=== PATIENT | female | born 1975 | race African-American/Black ===

== ENCOUNTER 2016-07-21 09:59 | Emergency (ER) | payer MEDICAID ==
[2016-07-21 09:59] VITALS: BMI 49.1
[2016-07-21 10:07] VITALS: TEMP 98.6
[2016-07-21] MEDS ORDERED: PROMETHAZINE 25 MG/ML VIAL IV ONE (10:15)
[2016-07-21] MEDS ORDERED: PANTOPRAZOLE 40 MG VIAL IV ONE (10:17)
[2016-07-21] MEDS ORDERED: HYDROmorphone 1 MG INJECTION IV ONE ×2 (10:17→11:41)
[2016-07-21] MEDS ORDERED: NS 1,000 ML IV ONE (10:28)
[2016-07-21] MEDS ORDERED: LABETALOL 20 MG/4 ML SYRINGE IV ONE (10:28)
--- NOTE | 2016-07-21 10:37 | EDPRACDOC ---
- General Information Chief Complaint: Nausea,Vomiting,Diarrhea Stated Complaint: ABD/BACK PAIN/N/V Time Seen by Provider: 07/21/16 10:13 Information Source: Patient Mode Of Arrival: Car Home Medications: Home Medications Insulin Detemir [Levemir] 60 units SQ QHS 12/25/13 Pantoprazole Sodium [Protonix] 40 mg PO DAILY 03/14/14 Duloxetine [Cymbalta] 60 mg PO HS 01/01/15 Metformin HCl [Glucophage] 500 mg PO BID 06/08/15 Sennosides [Senna Laxative] 25 mg PO BID 09/19/15 Albuterol Sulfate [Proair Hfa] 2 puff INH Q4H PRN 11/05/15 Lorazepam [Ativan] 1 mg PO BID PRN 11/05/15 Oxycodone HCl/Acetaminophen [Percocet 7.5-325 mg Tablet] 1 tab PO Q8H PRN Atorvastatin Calcium [Lipitor] 40 mg PO QHS 03/28/16 Apixaban [Eliquis] 5 mg PO BID #120 tablet 06/11/16 Lisinopril/Hydrochlorothiazide [Lisinopril-Hctz 10-12.5 mg Tab] 1 tab PO DAILY 07/05/16 Ciprofloxacin HCl [Cipro] 500 mg PO BID #14 tab 07/21/16 Hydrocodone/Acetaminophen [Lortab 5-325 mg Tablet] 1 each PO Q4H PRN #15 tablet 07/21/16 Metoclopramide HCl [Reglan] 10 mg PO Q6H #20 tablet 07/21/16 Phenazopyridine HCl [Pyridium] 200 mg PO TID #6 tablet 07/21/16 Allergies/Adverse Reactions: Allergies Allergy/AdvReac Type Severity Reaction Status Date / Time No Known Allergies Allergy Verified 07/21/16 10:06 - History of Present Illness Onset: DAYS HPI: PT SAID THAT SHE HAS HAD N/V WITH ABD PAIN FOR 2 DAYS. PT HAS BEEN HERE FREQUENTLY FOR SIMILAR COMPLAINTS. PT HAS BEEN UNABLE TO KEEP DOWN HER MEDS. Symptoms Occured: Reports: Spontaneous Duration: Reports: Intermittent Pain Severity: Moderate Pain Location: Reports: Epigastric History of: Reports: Abdominal Surgery Relevant History of: Reports: Abdominal Surgery Associated Signs & Symptoms: Reports: Nausea, Vomiting Oral Intake: Decreased Urinary Output: Decreased ED Past Medical History - Patient Medical History Neurological History: Cardiac History: Reports: Hypertension, Hypercholesterolemia Respiratory History: Reports: Pulmonary Embolism GI/ History: Reports: Gastroesophageal Reflux Musculoskeletal History: Reports: Osteoarthritis Psychological History: Reports: Anxiety. Denies: Depression, Substance Use Disorder Systemic History: Reports: Anemia, Diabetes (NIDDM). Denies: Cancer Additional Past Medical History: CHRONIC PAIN Surgical History: Reports: Cholecystectomy (2011), Hysterectomy (Dr. Larose, December 2013), Tonsillectomy/Adnoidectomy, Other (BTL, T&A) - Family Medical History Reports: Hypertension (Mother), Diabetes (Mother), Cancer, Stroke (Mother), Cardiac Disorders (Mother: SD/CHF at 40 yo. Father) - Social Medical History Smoking Status: Never smoker Social History: Denies: Substance Use Disorder ETOH: None Substance Abuse: None Lives In: Home EDM Review of Systems - Review of Systems ROS Negative Except as Marked: Yes All systems reviewed and were negative except as marked Gastrointestinal: Nausea, Pain, Vomiting - Physical Exam Constitutional: Alert (Awake), Distress Oriented to: Time, Person, Place Last recorded Vital Signs: Last Vital Signs Temp 98.6 F 07/21/16 10:06 Pulse 125 H 07/21/16 10:06 Resp 22 07/21/16 10:06 BP 190/105 H 07/21/16 10:06 Pulse Ox 95 07/21/16 10:06 Oxygen Pulse Oxygen Saturation 95 O2 Device Oxygen Flow Rate Fraction of Inspired Oxygen ( FIO2) - HEENT Head: Normal ( normocephalic) Eye Exam: Normal (PERRL, EOMI, Sclera white) Oropharynx: Membranes Dry ENT EAC: Normal TMJ: Normal Nose: No Symptoms Reported (septum midline) Neck: Normal (FROM, trachea at midline) - Respiratory/Cardiovascular Respiratory: Normal - CTA Cardiovascular: Tachycardia - GI Auscultation: Normal (NABS) Palpation: Normal (Soft,No rebound or guarding, non distended) Tenderness: Diffuse, Mild Bill's Sign: Negative - Musculoskeletal Back: Normal (Non-Tender) Extremities: Normal (Normal tone, Pulses 2+ No cyanosis or edema, FROM) - Integumentary Skin: Normal, Warm, Dry Lymphatics: Normal (no adenopathy) - Neurologic Memory Impaired: Normal Motor Function: Normal (Normal tone, Pulses 2+ No cyanosis or edema, FROM) Cranial Nerve: Normal (CN II-X11 intact sensation, strength 5/5) Cerebellar: Normal Mood Description: Normal Thought: Coherent Perception: Normal - Re-evaluation Re-evaluation 1 Re-evaluation Time: 12:44 (IMPROVED) - Results 07/21/16 10:23 07/21/16 10:23 - EKG EKG #1 EKG Time: 10:20 -: Yes EKG interpreted by me Rate: bpm: 122 [place]: Normal Rhythm: ST Block: None Hypertrophy: None ST: Normal Comparison: 07/05/16 - Diagnostic Imaging Chest Image interpreted by: Radiologist Stable chest. No acute cardiopulmonary process Decision Time to Discharge: 12:44 - Departure Yes I personally saw and evaluated the patient. Disposition: Home Condition: Fair Final Diagnosis: Nausea and vomiting, Dehydration, UTI (urinary tract infection), Poorly controlled type 2 diabetes mellitus Instructions: Urinary Tract Infection in Women (ED), Acute Nausea and Vomiting (ED) Education/Counseling Given To: Patient Education/Counseling Given Regarding: Diagnosis, Treatment, Follow Up Referrals: Rissa Salas NP [Primary Care Provider] - One Week Prescriptions: Ciprofloxacin HCl [Cipro] 500 mg PO BID #14 tab Hydrocodone/Acetaminophen [Lortab 5-325 mg Tablet] 1 each PO Q4H PRN #15 tablet PRN Reason: Pain Metoclopramide HCl [Reglan] 10 mg PO Q6H #20 tablet Phenazopyridine HCl [Pyridium] 200 mg PO TID #6 tablet Forms: Patient Discharge Instructions, ED Discharge Instructions Additional Instructions: DIABETIC DIET
[2016-07-21 10:47] LABS: BLOOD UREA NITROGEN 16 MG/DL (7-17); CALCIUM 9.5 MG/DL (8.4-10.2); CALCULATED OSMOLALITY 272 MOs/Kg (270-290); CHLORIDE 90 mEq/L (98-107); GLUCOSE 393 MG/DL (70-99); SODIUM LEVEL 132 mEq/L (137-146); TOTAL PROTEIN 8.3 G/DL (6.3-8.2)
[2016-07-21 10:50] LABS: PARTIAL THROMB. TIME 25.2 SEC (22-35)
--- NOTE | 2016-07-21 11:17 | DIRPT ---
CLINICAL DATA: Epigastric pain with nausea and vomiting for 2 days. EXAM: PORTABLE CHEST 1 VIEW COMPARISON: Radiographs 07/05/2016. CT 07/05/2016. FINDINGS: 1050 hours. The heart size and mediastinal contours are normal. The lungs are clear. There is no pleural effusion or pneumothorax. No acute osseous findings are identified. Old rib fractures are again noted bilaterally. IMPRESSION: Stable chest. No acute cardiopulmonary process. Electronically Signed By: Jonathon Wade M.D. On: 07/21/2016 11:14
[2016-07-21 11:34] LABS: SEG NEUTROPHIL 89 % (45-76)
[2016-07-21] MEDS ORDERED: METOCLOPRAMIDE 10 MG/2 ML VIAL IV ONE (11:51)
[2016-07-21] MEDS ORDERED: REGULAR INSULIN 100 UNITS/ML - 3 ML VIAL IV ONE (11:51)
[2016-07-21 12:22] LABS: CA OXALATE OCC; LEUKOCYTES/URINE NEG (NEGATIVE); NITRITE/URINE POS (NEGATIVE); URINE OCCULT BLOOD 1+ (NEG/TRACE); WBC/URINE TNTC (0-5)
[2016-07-21] MEDS ORDERED: CEFTRIAXONE 1 GM in D5W 100 ML IV ONE (12:44)
[2016-07-21] MEDS ORDERED: PHENAZOPYRIDINE 100 MG TAB PO ONE (12:46)
[2016-07-21 13:32] VITALS: BP 163/82; PULSE 109
== END 2016-07-21 13:25 | disposition home or self-care (01) ==
LOC: ED 09:59
DX: N39.0 Urinary tract infection, site not specified (principal); E11.65 Type 2 diabetes mellitus with hyperglycemia; E86.0 Dehydration
CPT/HCPCS: 36415; 71010; 80053; 81001; 82962; 84484; 85007; 85027; 85610; 85730; 87077; 87086; 87186; 93005; 96360; 96365; 96375; 96376; 99285; J0696; J1170; J2550; J2765; J3490; J7060; S0164

== ENCOUNTER 2016-08-03 02:49 | Emergency (ER) | payer MEDICAID ==
[2016-08-03 02:49] VITALS: BMI 49.1
[2016-08-03 02:59] VITALS: TEMP 98.3
[2016-08-03] MEDS ORDERED: METOCLOPRAMIDE 10 MG/2 ML VIAL IV ONE (03:01)
[2016-08-03] MEDS ORDERED: NS 1,000 ML IV ONE ×2 (03:01→05:02)
[2016-08-03] MEDS ORDERED: MORPHINE 4 MG/ML INJECTION IV ONE (03:01)
--- NOTE | 2016-08-03 03:18 | EDPRACDOC ---
- General Information Chief Complaint: Abdominal Pain Stated Complaint: ABD/BACK PAIN Time Seen by Provider: 08/03/16 02:56 Information Source: Patient Mode Of Arrival: Car Home Medications: Home Medications Insulin Detemir [Levemir] 60 units SQ QHS 12/25/13 Pantoprazole Sodium [Protonix] 40 mg PO DAILY 03/14/14 Duloxetine [Cymbalta] 60 mg PO HS 01/01/15 Metformin HCl [Glucophage] 500 mg PO BID 06/08/15 Sennosides [Senna Laxative] 25 mg PO BID 09/19/15 Albuterol Sulfate [Proair Hfa] 2 puff INH Q4H PRN 11/05/15 Lorazepam [Ativan] 1 mg PO BID PRN 11/05/15 Oxycodone HCl/Acetaminophen [Percocet 7.5-325 mg Tablet] 1 tab PO Q8H PRN Atorvastatin Calcium [Lipitor] 40 mg PO QHS 03/28/16 Apixaban [Eliquis] 5 mg PO BID #120 tablet 06/11/16 Lisinopril/Hydrochlorothiazide [Lisinopril-Hctz 10-12.5 mg Tab] 1 tab PO DAILY 07/05/16 Ciprofloxacin HCl [Cipro] 500 mg PO BID #14 tab 07/21/16 Hydrocodone/Acetaminophen [Lortab 5-325 mg Tablet] 1 each PO Q4H PRN #15 tablet 07/21/16 Metoclopramide HCl [Reglan] 10 mg PO Q6H #20 tablet 07/21/16 Phenazopyridine HCl [Pyridium] 200 mg PO TID #6 tablet 07/21/16 Metoclopramide HCl [Reglan] 5 mg PO Q8 PRN #30 tab 08/03/16 Ondansetron [Zofran Odt] 4 mg PO Q6H PRN #15 tab.rapdis 08/03/16 Sulfamethoxazole/Trimethoprim [Bactrim Ds Tablet] 1 tab PO BID #14 tab 08/03/16 Allergies/Adverse Reactions: Allergies Allergy/AdvReac Type Severity Reaction Status Date / Time No Known Allergies Allergy Verified 08/03/16 02:59 - History of Present Illness Onset: 2 DAYS HPI: PT PRESENTS WITH DIFFUSE ABDOMINAL PAIN AND N/V/D FOR THE LAST FEW DAYS. Pain Location: Reports: Diffuse Pain Context: Reports: Spontaneous Pain Severity: Moderate Pain Quality: Reports: Aching, Cramping Pain Radiation: Reports: No Radiation : No Blood Type: Unknown Female Abdominal History: Female Associated Signs & Symptoms: Reports: Nausea, Vomiting, Diarrhea Oral Intake: Decreased ED Past Medical History - History Reviewed Yes Nurses notes reviewed and agree except as marked - Patient Medical History Neurological History: Cardiac History: Reports: Hypertension, Hypercholesterolemia Respiratory History: Reports: Pulmonary Embolism GI/ History: Reports: Gastroesophageal Reflux Musculoskeletal History: Reports: Osteoarthritis Psychological History: Reports: Anxiety. Denies: Depression, Substance Use Disorder Systemic History: Reports: Anemia, Diabetes (NIDDM). Denies: Cancer Additional Past Medical History: CHRONIC PAIN Surgical History: Reports: Cholecystectomy (2011), Hysterectomy, Tonsillectomy/ Adnoidectomy, Other (BTL, T&A) - Family Medical History Reports: Hypertension (Mother), Diabetes (Mother), Cancer, Stroke (Mother), Cardiac Disorders (Mother: PR/CHF at 40 yo. Father) - Social Medical History Smoking Status: Never smoker Social History: Denies: Substance Use Disorder Lives With: Family Lives In: Home EDM Review of Systems - Review of Systems ROS Negative Except as Marked: Yes All systems reviewed and were negative except as marked Constitutional: Fatigue, Weakness. negative: Fever Gastrointestinal: Diarrhea, Nausea, Pain, Vomiting Genitourinary: negative: Dysuria - Physical Exam Constitutional: Alert Oriented to: Time, Person, Place Last recorded Vital Signs: Last Vital Signs Temp 98.3 F 08/03/16 02:56 Pulse 109 08/03/16 04:30 Resp 18 08/03/16 04:30 BP 135/74 08/03/16 04:30 Pulse Ox 99 08/03/16 04:30 Oxygen Pulse Oxygen Saturation 99 O2 Device Room Air Oxygen Flow Rate Fraction of Inspired Oxygen ( FIO2) - HEENT Head: negative: Deformity, Laceration Eye Exam: negative: Conjunctival Injection, Pale Conjunctiva Oropharynx: Membranes Dry (TACKY) Nose: negative: Congestion, Discharge Neck: negative: Limited ROM - Respiratory/Cardiovascular Respiratory: Tachypnea. negative: Accessory Muscle Use, Diminished Cardiovascular: Tachycardia - GI Auscultation: Normal Palpation: Normal Tenderness: Diffuse, Mild. negative: Guarding, Rebound, Rigidity - Musculoskeletal Extremities: Radial Pulse (PALPABLE) - Integumentary Skin: Warm, Dry. negative: Rash - Neurologic Memory Impaired: Normal Motor Function: Normal Mood Description: Anxious Thought: Coherent Perception: Normal - Results 08/03/16 03:17 08/03/16 03:17 WBC 12.3 xk/uL (3.8-10.8) H 08/03/16 03:17 RBC 4.74 xM/uL (4.20-5.40) 08/03/16 03:17 Hgb 13.5 g/dL (12.0-16.0) 08/03/16 03:17 Hct 40.1 % (36-47) 08/03/16 03:17 MCV 85 fL (81-99) 08/03/16 03:17 MCH 28.5 pg (27-32) 08/03/16 03:17 MCHC 33.7 g/dl (33-36) 08/03/16 03:17 RDW 13.7 % (11.5-14.5) 08/03/16 03:17 Plt Count 509 xk/uL (130-400) H 08/03/16 03:17 MPV 7.7 fL (7.4-10.4) 08/03/16 03:17 Neut % (Auto) 77.9 % (45-76) H 08/03/16 03:17 Lymph % (Auto) 14.9 % (17-44) L 08/03/16 03:17 [place] % (Auto) 5.2 % (3-10) 08/03/16 03:17 Eos % (Auto) 0.9 % (0-5) 08/03/16 03:17 Baso % (Auto) 1.1 % (0-2) 08/03/16 03:17 Absolute Neuts (auto) 9.47 xk/uL (1.7-8.2) H 08/03/16 03:17 Absolute Lymphs (auto) 1.72 xk/uL (0.65-4.75) 08/03/16 03:17 PT 10.7 SEC (9.2-11.2) 08/03/16 03:17 INR 1.0 08/03/16 03:17 APTT 24.1 SEC (22-35) 08/03/16 03:17 Sodium 138 mEq/L (137-146) 08/03/16 03:17 Potassium 4.0 mEq/L (3.5-5.1) 08/03/16 03:17 Chloride 96 mEq/L (98-107) L 08/03/16 03:17 Carbon Dioxide 30 mMOL/L (22-33) 08/03/16 03:17 Anion Gap 16 mEq/L (8-16) 08/03/16 03:17 BUN 12 MG/DL (7-17) 08/03/16 03:17 Creatinine 0.70 MG/DL (0.52-1.04) 08/03/16 03:17 Estimated GFR (MDRD) > 60 mL/min (>=60) 08/03/16 03:17 Glucose 234 MG/DL (70-99) H 08/03/16 03:17 Calculated Osmolality 274 MOs/Kg (270-290) 08/03/16 03:17 Calcium 9.4 MG/DL (8.4-10.2) 08/03/16 03:17 Total Bilirubin 1.1 MG/DL (0.2-1.3) 08/03/16 03:17 AST 22 IU/L (14-36) 08/03/16 03:17 ALT 24 IU/L (9-52) 08/03/16 03:17 Alkaline Phosphatase 73 IU/L (38-126) 08/03/16 03:17 Troponin I < 0.01 ng/mL (<.04) 08/03/16 03:17 Total Protein 8.0 G/DL (6.3-8.2) 08/03/16 03:17 Albumin 4.3 G/DL (3.5-5.0) 08/03/16 03:17 Urine Color Yellow 08/03/16 05:03 Urine Clarity Hazy 08/03/16 05:03 Urine pH 6.0 (5.0-8.0) 08/03/16 05:03 Ur Specific [place] 1.010 (1.003-1.035) 08/03/16 05:03 Urine Protein Neg (NEG/TRACE) 08/03/16 05:03 Urine Glucose (UA) 1+ (NEGATIVE) H 08/03/16 05:03 Urine Ketones Neg (NEGATIVE) 08/03/16 05:03 Urine Occult Blood Neg (NEG/TRACE) 08/03/16 05:03 Urine Nitrite Neg (NEGATIVE) 08/03/16 05:03 Urine Bilirubin Neg (NEGATIVE) 08/03/16 05:03 Urine Urobilinogen 0.2 MG/DL (0-1) 08/03/16 05:03 Ur Leukocyte Esterase Neg (NEGATIVE) 08/03/16 05:03 Urine RBC 2-5 (0-5) 08/03/16 05:03 Urine WBC Tntc (0-5) H 08/03/16 05:03 Ur Epithelial Cells 4+ 08/03/16 05:03 Urine Bacteria 4+ (NEG/FEW) H 08/03/16 05:03 Urine Mucus Large (NEG/OCC) 08/03/16 05:03 Urine Yeast Sm amt (NONE) 08/03/16 05:03 Lab Results 08/03/16 08/03/16 08/03/16 05:03 03:17 03:17 WBC 12.3 H RBC 4.74 Hgb 13.5 Hct 40.1 MCV 85 MCH 28.5 MCHC 33.7 RDW 13.7 Plt Count 509 H MPV 7.7 Neut % (Auto) 77.9 H Lymph % (Auto) 14.[address] [place] % (Auto) 5.2 Eos % (Auto) 0.9 Baso % (Auto) 1.1 Absolute Neuts (auto) 9.47 H Absolute Lymphs (auto) 1.72 PT 10.7 INR 1.0 APTT 24.1 Sodium Potassium Chloride Carbon Dioxide Anion Gap BUN Creatinine Estimated GFR (MDRD) Glucose Calculated Osmolality Calcium Total Bilirubin AST ALT Alkaline Phosphatase Troponin I Total Protein Albumin Urine Color Yellow Urine Clarity Hazy Urine pH 6.0 Ur Specific [place] 1.010 Urine Protein Neg Urine Glucose (UA) 1+ H Urine Ketones Neg Urine Occult Blood Neg Urine Nitrite Neg Urine Bilirubin Neg Urine Urobilinogen 0.2 Ur Leukocyte Esterase Neg Urine RBC 2-5 Urine WBC Tntc H Ur Epithelial Cells 4+ Urine Bacteria 4+ H Urine Mucus Large Urine Yeast Sm amt 08/03/16 03:17 WBC RBC Hgb Hct MCV MCH MCHC RDW Plt Count MPV Neut % (Auto) Lymph % (Auto) [place] % (Auto) Eos % (Auto) Baso % (Auto) Absolute Neuts (auto) Absolute Lymphs (auto) PT INR APTT Sodium 138 Potassium 4.0 Chloride 96 L Carbon Dioxide 30 Anion Gap 16 BUN 12 Creatinine 0.70 Estimated GFR (MDRD) > 60 Glucose 234 H Calculated Osmolality 274 Calcium 9.4 Total Bilirubin 1.1 AST 22 ALT 24 Alkaline Phosphatase 73 Troponin I < 0.01 Total Protein 8.0 Albumin 4.3 Urine Color Urine Clarity Urine pH Ur Specific [place] Urine Protein Urine Glucose (UA) Urine Ketones Urine Occult Blood Urine Nitrite Urine Bilirubin Urine Urobilinogen Ur Leukocyte Esterase Urine RBC Urine WBC Ur Epithelial Cells Urine Bacteria Urine Mucus Urine Yeast Decision Time to Discharge: 06:14 - Departure Yes I personally saw and evaluated the patient. Disposition: Home Condition: Stable Final Diagnosis: Gastroparesis, UTI (urinary tract infection) Instructions: Acute Abdominal Pain (ED), Urinary Tract Infection in Women (ED) , Dysuria Education/Counseling Given To: Patient Education/Counseling Given Regarding: Diagnosis, Treatment, Prognosis, Follow Up Referrals: Rissa Salas, MET[employer] RECORD CLERK [Primary Care Provider] - Call for Appointment Prescriptions: Metoclopramide HCl [Reglan] 5 mg PO Q8 PRN #30 tab PRN Reason: Nausea Ondansetron [Zofran Odt] 4 mg PO Q6H PRN #15 tab.rapdis PRN Reason: Nausea/Vomiting Sulfamethoxazole/Trimethoprim [Bactrim Ds Tablet] 1 tab PO BID #14 tab
[2016-08-03 03:23] LABS: AUTOMATED BASOPHIL 1.1 % (0-2); AUTOMATED EOSINOPHIL 0.9 % (0-5); AUTOMATED LYMPH 14.9 % (17-44); AUTOMATED MONOCYTE 5.2 % (3-10); AUTOMATED NEUTROPHIL 77.9 % (45-76); MPV 7.7 fL (7.4-10.4)
[2016-08-03 03:34] LABS: BLOOD UREA NITROGEN 12 MG/DL (7-17); CALCIUM 9.4 MG/DL (8.4-10.2); CALCULATED OSMOLALITY 274 MOs/Kg (270-290); CHLORIDE 96 mEq/L (98-107); GLUCOSE 234 MG/DL (70-99); SODIUM LEVEL 138 mEq/L (137-146)
[2016-08-03 03:42] LABS: PARTIAL THROMB. TIME 24.1 SEC (22-35)
[2016-08-03] MEDS ORDERED: OXYCODONE HCL 5 MG TABLET PO STA ×2 (04:42→05:42)
[2016-08-03 05:23] LABS: LEUKOCYTES/URINE NEG (NEGATIVE); NITRITE/URINE NEG (NEGATIVE); URINE OCCULT BLOOD NEG (NEG/TRACE); WBC/URINE TNTC (0-5)
[2016-08-03] MEDS ORDERED: TRIMETHOPRIM-SULFAMETHOXAZOLE TAB PO STA (05:40)
[2016-08-03] MEDS ORDERED: DIAZEPAM 5 MG TAB PO STA (05:42)
[2016-08-03 06:41] VITALS: BP 160/91; PULSE 111
== END 2016-08-03 06:37 | disposition home or self-care (01) ==
LOC: ED 02:49
DX: K31.84 Gastroparesis (principal); N39.0 Urinary tract infection, site not specified
CPT/HCPCS: 36415; 80053; 81001; 84484; 85025; 85610; 85730; 93005; 96361; 96374; 96375; 99284; J2270; J2765; J3490